=== PATIENT | male | born 1985 | race Caucasian/White ===

== ENCOUNTER 2018-11-28 10:41 | Emergency (ER) | payer MEDICAID ==
[~2018-11-28] VITALS: Ht 167.6 cm; Wt 76.5 kg
[2018-11-28 11:08] VITALS: BP 140/64; PULSE 86; RESP 20; Ht 167.6 cm; Wt 76.5 kg
--- NOTE | 2018-11-28 12:53 | ERD ---
ER Documentation Chief Complaint Chief Complaint Complains of facial numbness with a cough x 3 days HPI 33-year-old male presents with complaint of right-sided throbbing headache along with right-sided facial numbness for the past 3 days. Also states that he feels some difficulty breathing. States that he is also vomited several times since Wednesday. Denies abdominal pain. States that he has gotten this numbness before when he gets mad. He admits to having a lot of stress. Denies fevers, photophobia, neck stiffness. Denies past medical history. Denies allergies. Denies medications. Denies surgeries. Denies alcohol, tobacco, drug use. Up to date on vaccines. ROS All systems reviewed and are negative except as per history of present illness. Medications Home Meds Active Scripts Ibuprofen* (Motrin*) 600 Mg Tab, 600 MG PO Q6 for headache, #30 TAB Prov:JOSE KRUGER 11/28/18 Allergies Allergies: Coded Allergies: No Known Allergy (Unverified , 11/28/18) PMhx/Soc Medical and Surgical Hx: pt denies Medical Hx, pt denies Surgical Hx FmHx Family History: No diabetes, No coronary disease, No other Physical Exam Vitals Vital Signs Date Temp Pulse Resp B/P (MAP) Pulse Ox O2 O2 Flow FiO2 Time Delivery Rate 11/28/18 98.1 86 20 140/64 97 11:08 (89) Physical Exam Const: No acute distress Head: Atraumatic Eyes: Normal Conjunctiva ENT: Normal External Ears, Nose and Mouth. Neck: Full range of motion. No meningismus. Resp: Clear to auscultation bilaterally Cardio: Regular rate and rhythm, no murmurs Abd: Soft, non tender, non distended. Normal bowel sounds Skin: No petechiae or rashes Back: No midline or flank tenderness Ext: No cyanosis, or edema Neur: Awake and alert Psych: Normal Mood and Affect Neuro: M/S: Alert and oriented Face: EOMI, right side of face lacks sensation but has normal function. pharynx has normal sensation and function Motor: Normal strength throughout Sensation: Normal sensation throughout Speech: Normal Cerebel: Normal coordination Normal gait Normal finger to nose DTR: 2+ and symmetric upper/lower extremities Results 24 hrs Current Medications Medications Dose Sig/José Start Time Status Last (Trade) Ordered Route PRN Stop Time Admin Dose Reason Admin Lorazepam 1 mg ONCE ONCE 11/28/18 DC 11/28/18 (Ativan) PO 13:00 12:55 11/28/18 13:01 Ketorolac 60 mg ONCE STAT 11/28/18 DC 11/28/18 Tromethamine IM 14:34 14:49 (Toradol) 11/28/18 14:38 Procedures/MDM DIAGNOSTIC IMAGING REPORT Patient: KATIE CUEVAS : 1985 Age: 33 Sex: M [id number] [id number] DOS: 11/28/18 1352 Ordering MD: JOSE KRUGER Location: [facility] Room/Bed: PROCEDURE: CT Brain without contrast CLINICAL INDICATION: headache, right facial numbness TECHNIQUE: A CT of the brain was performed on multidetector high-resolution CT scanner utilizing axial sections from the skull base through the vertex without contrast. The scan was reviewed in soft tissue brain and high frequency resolution bone algorithm windows. Images were reviewed on a high-resolution PACS workstation. DICOM images are available. CTDI (mGy): 37.37 mGy and DLP(mGy-cm): 634.23 mGy.cm One or more of the following dose reduction techniques were used: - Automated exposure control. - Adjustment of the mA and/or kV according to patient size. Use of iterative reconstruction technique. COMPARISON: None available FINDINGS: The ventricles and sulci are symmetric and normal in size and morphology. There is no evidence of intracranial hemorrhage, mass effect, edema or midline shift. No abnormal intra-axial or extra-axial fluid collections are seen. The density of the brain is normal and the meade/white matter differentiation is well preserved. Brainstem and posterior fossa structures are equally unremarkable. The osseous structures and visualized paranasal sinuses are unremarkable. The surrounding soft tissue scalp and bony calvarium are intact and normal. IMPRESSION: 1. No CT evidence of acute intracranial changes including hemorrhage, midline shift, mass effect or herniation. 2. Preservation of the meade-white matter distinction on CT. Further MR imaging can be obtained in the appropriate clinical setting, including early acute ischemia, vasogenic edema and parenchymal lesions, potentially occult on CT imaging. RPTAT: EE Physician Thelma Hill Date Time Electronically viewed and signed by Rachell [place] Physician Petal Shaper Hand on 11/28/2018 14:30 rP/ CC: JOSE KRUGER [id number] 33-year-old male presents with complaint of right-sided throbbing headache along with right-sided facial numbness for the past 3 days. Also states that he feels some difficulty breathing. States that he is also vomited several times since Wednesday. Denies abdominal pain. States that he has gotten this numbness before when he gets mad. He admits to having a lot of stress. Denies fevers, photophobia, neck stiffness. Denies past medical history. Denies allergies. Denies medications. Denies surgeries. Denies alcohol, tobacco, drug use. Up to date on vaccines. While patient states he does have history of headaches with focal neurological findings, he does state that this headache is a different quality and higher intensity of any headache he has had in the past and that so he came to the ER. He also denies ever having imaging in the past is done. Also, on exam patient did state that there was no sensation to palpation on the right side of his face. Therefore decision was made to do head CT to rule out CVA. CT results were within normal limits. Patient's presentation is consistent with migraine with aura. Patient given IM Toradol in the ER. Patient discharged with ibuprofen 600 mg. I have low suspicion for intracranial hemorrhage, elevated intracranial pressure, intracranial mass, aneurysm, meningitis, malignant hypertension, giant cell arteritis, carotid dissection, intracranial abscess, cerebral venous thrombosis, CO2 poisoning, or other emergent causes of headache based on patients history and exam. Patient discharged with strict ER precautions. Patient advised to follow up with PMD. All questions answered at discharge. Departure Diagnosis: Primary Impression: Migraine Migraine type: with aura Status migrainosus presence: without status migrainosus Intractability: not intractable Qualified Codes: G43.109 - Migraine with aura, not intractable, without status migrainosus Condition: Stable JOSE KRUGER Nov 28, 2018 12:53
[2018-11-28] MEDS ORDERED: LORAZEPAM 1 MG TAB PO ONE (13:00)
[2018-11-28] MEDS ORDERED: IBUP-1542 PO (13:11)
[2018-11-28] MEDS ORDERED: KETOROLAC 60 MG INJ IM STA (14:34)
== END 2018-11-28 15:25 | disposition home or self-care (01) ==
LOC: FTE 10:41
DX: G43.109 Migraine with aura, not intractable, without status migrainosus (principal)
CPT/HCPCS: 70450; J1885; Z7610; 96372